=== PATIENT | female | born 1960 | race Caucasian/White ===

== ENCOUNTER 2020-05-04 17:42 | Emergency (ER) | payer MEDICARE, SELFPAY ==
[2020-05-04 17:43] VITALS: BP 140/60; PULSE 60; RESP 18; TEMP 36.7; O2SAT 98; BMI 27.4
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
[2020-05-04 17:47] VITALS: BP 140/60; PULSE 60; O2SAT 97
--- NOTE | 2020-05-04 18:10 | XR_ITS ---
PROCEDURE: XR CHEST 2V CLINICAL HISTORY: upper back pain lung pain COMPARISON: CR CXR CHEST(2 VIEWS-NOT PORTABLE) from 04/25/2015 FINDINGS: No lobar consolidation, pleural effusions or pneumothorax. Bibasilar atelectasis. Hyperexpanded lungs with the emphysematous changes noted, predominantly in the bilateral upper lobes. The heart size and central pulmonary vasculature within normal limits. There is prominence of the bilateral scapular with lateral displacement, raises the concern for winged scapula. IMPRESSION: Bibasilar atelectasis. Emphysematous changes, predominantly in bilateral upper lobes. Dictated by: Faye Reed 05/05/2020 09:26 Faye Reed in OV 05/05/2020 09:26
--- NOTE | 2020-05-04 18:40 | PC.NURSE ---
SPOKE TO RADIOLOGY ABOUT GETTING A V RAD READING
[2020-05-04 18:43] VITALS: BP 149/90; PULSE 54; RESP 18; TEMP 36.7; O2SAT 97
== END 2020-05-04 18:47 | disposition home or self-care (01) ==
PROVIDERS: Emergency Provider Emergency Medicine; PCP Family Medicine
DX: R07.89 Other chest pain (principal); M54.6 Pain in thoracic spine
CPT/HCPCS: 71046; 99282